=== PATIENT | male | born 1970 ===

== ENCOUNTER 2018-08-01 07:37 | Day surgery (SDC) | payer OTHER ==
[~2018-08-01] VITALS: Ht 177.8 cm; Wt 133.2 kg
[~2018-08-01 07:37] MED LIST: ALBU90OI INH; Amlodipine Bes2.5 MG PO; CLARITIN10 MG PO; Flovent 110 MCG12 GM INH; MOMENI; Prinivil10 MG PO
[2018-08-01] MEDS ORDERED: LO-DOSE ASPIRIN81 MG (08:06)
--- NOTE | 2018-08-01 09:20 | NUR ---
08/01/18 0920 Saira Cleveland PATIENT NOTIFIED DR PAUL HAS GOTTEN CALLED NEXT DOOR FOR EMERGENT CASE IN ICU. UNKNOWN HOW LONG THIS WILL DELAY THE CASE. PATIENT GIVEN OPTION OF RESCHEDULING OR WAITING. PATIENT CHOOSES TO WAIT. PATIENT GIVEN WARM BLANKETS, CALL LIGHT WITHIN REACH AND PATIENT VERBALIZES HE WILL JUST TAKE A NAP.
--- NOTE | 2018-08-01 11:07 | NUR ---
08/01/18 1107 Saira Cleveland GROUNDING PAD RIGHT FLANK
--- NOTE | 2018-08-01 12:46 | NUR ---
08/01/18 [address] BECK A CBC & PT/INR WAS DRAWN ON PATIENT. [facility].
[2018-08-01 12:54] LABS: Hematocrit 43.8 % (37.0-53.0); Hemoglobin 14.5 g/dL (13.5-17.5); Mean Corpuscular HGB 29.7 pg (26.0-34.0); Mean Corpuscular HGB Conc 33.1 g/dL (31.5-36.5); Mean Corpuscular Volume 90 fL (80-100); Mean Platelet Volume 9.9 fL (9.1-12.4); Platelet Count 339 K/mm3 (150-400); RDW Coefficient Variation 13.3 % (11.7-14.2); RDW Standard Deviation 43.6 fL (35.1-46.3); Red Blood Cell Count 4.88 M/mm3 (4.30-5.90); White Blood Cell Count 8.78 K/mm3 (4.00-11.30)
[2018-08-01 13:10] LABS: International Normalized Ratio 0.97; Prothrombin Time Results 10.3 Sec (9.7-11.5)
== END 2018-08-01 12:31 | disposition home or self-care (01) ==
LOC: ORSCSDS 07:37
PROVIDERS: Internal Medicine Gastroenterology
PROC: 0DBL8ZX Excision of Transverse Colon, Via Natural or Artificial Opening Endoscopic, Diagnostic (ICD-10-PCS; principal; 2018-08-01 09:00)
PROC: 0DBM8ZX Excision of Descending Colon, Via Natural or Artificial Opening Endoscopic, Diagnostic (ICD-10-PCS; principal; 2018-08-01 09:00)
PROC: 0DBN8ZX Excision of Sigmoid Colon, Via Natural or Artificial Opening Endoscopic, Diagnostic (ICD-10-PCS; principal; 2018-08-01 09:00)
DX: Z12.11 Encounter for screening for malignant neoplasm of colon (principal); D12.3 Benign neoplasm of transverse colon; D12.4 Benign neoplasm of descending colon; D12.5 Benign neoplasm of sigmoid colon; I10 Essential (primary) hypertension; J45.909 Unspecified asthma, uncomplicated; R06.02 Shortness of breath; E66.01 Morbid (severe) obesity due to excess calories; Z68.41 Body mass index [BMI] 40.0-44.9, adult; Z79.899 Other long term (current) drug therapy
CPT/HCPCS: 85027; 85610; 88305; J0171; J2704; J7120

== ENCOUNTER 2018-08-03 15:57 | Observation (INO) | payer OTHER ==
[~2018-08-03] VITALS: Ht 177.8 cm; Wt 135.4 kg
[~2018-08-03 15:57] MED LIST changes: +LO-DOSE ASPIRIN81 MG
[2018-08-03] MEDS ORDERED: QVAR REDIHALE10.6 G1 INH (16:30)
[2018-08-03 18:20] LABS: Hematocrit 34.6 % (37.0-53.0); Hemoglobin 11.6 g/dL (13.5-17.5); Mean Corpuscular HGB 29.7 pg (26.0-34.0); Mean Corpuscular HGB Conc 33.5 g/dL (31.5-36.5); Mean Corpuscular Volume 89 fL (80-100); Mean Platelet Volume 9.9 fL (9.1-12.4); Platelet Count 329 K/mm3 (150-400); RDW Coefficient Variation 13.5 % (11.7-14.2); RDW Standard Deviation 43.6 fL (35.1-46.3); Red Blood Cell Count 3.91 M/mm3 (4.30-5.90)
[2018-08-03 18:48] LABS: Alanine Aminotransfer (ALT/SGP 34 U/L (12-78); Albumin, Blood 3.9 g/dL (3.4-5.0); Albumin/Globulin Ratio 1.1 (0.8-1.8); Alk Phos 71 U/L (50-136); Anion Gap 7 mmol/L (6-16); Aspartate Aminotrans (AST/SGOT 15 U/L (12-37); Bilirubin, Total 0.3 mg/dL (0.1-1.0); Blood Urea Nitrogen 10 mg/dL (8-24); Bun/Creatinine Ratio 12.5 (12.0-20.0); CO2, Blood 26 mmol/L (21-32); Calcium, Blood 8.7 mg/dL (8.5-10.1); Chloride, Blood 107 mmol/L (98-108); Globulin, Blood 3.5 g/dL (2.2-4.0); Glomerular Filtration Rate >60 (60-); Glucose, Blood 92 mg/dL (70-99); Potassium, Blood 3.5 mmol/L (3.5-5.5); Sodium, Blood 140 mmol/L (136-145); Total Protein, Blood 7.4 g/dL (6.4-8.2)
[2018-08-03 18:58] LABS: BASOPHILS PERCENT MAN 0 % (0-2); EOSINOPHILS ABSOLUTE MAN 0.33 K/mm3 (0.00-0.68); EOSINOPHILS PERCENT MAN 3 % (0-6); LYMPHOCYTES PERCENT MAN 31 % (21-46); MONOCYTES ABSOLUTE MAN 0.45 K/mm3 (0.16-1.47); MONOCYTES PERCENT MAN 4 % (4-13); SEG NEUTROPHILS PERCENT MAN 62 % (41-73); TOTAL CELLS COUNTED 100
[2018-08-03 23:22] LABS: Hematocrit 32.1 % (37.0-53.0); Hemoglobin 10.7 g/dL (13.5-17.5)
--- NOTE | 2018-08-03 23:36 | NUR ---
ASSUMED CARE OF PATIENT AT APPROXIMATELY 1900 FROM LORRIE Arciniega RN. PATIENT HAD JUST ARRIVED TO UNIT FROM ED. PATIENT ALERT AND ORIENTED X4; INDEPENDENT IN ROOM; PATIENT WAS IRRITABLE AT START OF SHIFT; WANTING TO GO HOME; ANXIOUS ABOUT UPCOMING TREATMENT. NSR ON TELE; OXYGEN SATURATION ABOVE 90% ON ROOM AIR. DR. VAZQUEZ IN TO SEE PATIENT AROUND 2230; SCOPE TOMORROW; CLEAR LIQUIDS UNTIL 0900; START BOWEL PREP AND WATER/ICE CHIPS UNTIL 1400 THEN NPO. LR INFUSING PER ORDER. PATIENT REPORTS BLOODY STOOL PAST FEW DAYS; NO STOOL SINCE ADMITTED TO PCU. PATIENT CURRENTLY SLEEPING IN BED; CALL LIGHT IN REACH; BED IN LOWEST POSISTION; WILL CONTINUE TO MONITOR AND ASSESS UNTIL END OF SHIFT.
[2018-08-04 04:08] LABS: Hematocrit 32.5 % (37.0-53.0); Hemoglobin 10.6 g/dL (13.5-17.5); Mean Corpuscular HGB 29.4 pg (26.0-34.0); Mean Corpuscular HGB Conc 32.6 g/dL (31.5-36.5); Mean Corpuscular Volume 90 fL (80-100); Mean Platelet Volume 9.9 fL (9.1-12.4); Platelet Count 306 K/mm3 (150-400); RDW Coefficient Variation 13.2 % (11.7-14.2); RDW Standard Deviation 43.8 fL (35.1-46.3); White Blood Cell Count 9.72 K/mm3 (4.00-11.30)
[2018-08-04 04:33] LABS: Alanine Aminotransfer (ALT/SGP 33 U/L (12-78); Albumin, Blood 3.5 g/dL (3.4-5.0); Albumin/Globulin Ratio 1.1 (0.8-1.8); Alk Phos 67 U/L (50-136); Anion Gap 6 mmol/L (6-16); Aspartate Aminotrans (AST/SGOT 14 U/L (12-37); Bilirubin, Total 0.5 mg/dL (0.1-1.0); Blood Urea Nitrogen 8 mg/dL (8-24); Bun/Creatinine Ratio 10.3 (12.0-20.0); CO2, Blood 28 mmol/L (21-32); Calcium, Blood 8.7 mg/dL (8.5-10.1); Chloride, Blood 108 mmol/L (98-108); Creatinine, Blood 0.78 mg/dL (0.60-1.20); Globulin, Blood 3.2 g/dL (2.2-4.0); Glomerular Filtration Rate >60 (60-); Glucose, Blood 107 mg/dL (70-99); Potassium, Blood 3.9 mmol/L (3.5-5.5); Sodium, Blood 142 mmol/L (136-145); Total Protein, Blood 6.7 g/dL (6.4-8.2)
--- NOTE | 2018-08-04 06:32 | NUR ---
PATIENT SLEPT ABOUT SIX HOURS LAST NIGHT; SNORING NOTED. VSS. NO BOWEL MOVEMENT. WILL CONTINUE TO MONITOR AND ASSESS UNTIL END OF SHIFT.
--- NOTE | 2018-08-04 10:57 | NUR ---
RECIEVED REPORT AND ASSUMED CARE OF PATIENT. HE IS AX0 X4 APPROPRIATE IN ROOM. PT SCHEDULED TO START BOWEL PREP AT 0900, STARTED PREP AND THEN DR VAZQUEZ CALLED AND STATED THAT LABS LOOK STABLE, PT CAN STOP BOWEL PREP AND DC HOME AND FOLLOW UP WITH SCHEDULED ONE YEAR COLONOSCOPY. PT IS DRESSED AND READY TO GO HOME. IV DISCONTINUED AND GIVEN D/C INSTRUCTIONS.
== END 2018-08-04 11:12 | disposition home or self-care (01) ==
LOC: ER 15:57 → PCU 15:58 → ER 15:58 → PCU 18:50
PROVIDERS: ADMIT Hospitalist
DX: K92.1 Melena (principal); D50.0 Iron deficiency anemia secondary to blood loss (chronic); I10 Essential (primary) hypertension; E78.5 Hyperlipidemia, unspecified; J45.909 Unspecified asthma, uncomplicated; E66.9 Obesity, unspecified; Z68.41 Body mass index [BMI] 40.0-44.9, adult; Z88.5 Allergy status to narcotic agent; Z88.1 Allergy status to other antibiotic agents; Z79.899 Other long term (current) drug therapy
CPT/HCPCS: 36415; 80053; 85007; 85014; 85018; 85027; 96360; 99284-25; J7120